=== PATIENT | male | born 1955 | race African-American/Black ===

== ENCOUNTER 2016-07-19 19:54 | Emergency (ER) | payer MEDICAID ==
[~2016-07-19] VITALS: Ht 172.7 cm; Wt 88.5 kg
--- NOTE | 2016-07-19 20:01 | NUR ---
PT WALKED INTO ER C/O GROIN PAIN, STATES HE WAS BOWLING AND HURT HIS RIGHT GROIN AREA, PT IS ALERT, ORIENTED X 4, NO RESP DISTRESS NOTED OR REPORTED UPON ASSESSMENT. MD AT BEDSIDE...
[2016-07-19] MEDS ORDERED: IBUPROFEN 800 MG TABLET PO ONE (20:30)
[2016-07-19] MEDS ORDERED: IBUPROFEN 800 MG TABLET ONE (20:32)
--- NOTE | 2016-07-19 20:43 | NUR ---
Patient discharged to home in stable conditon. Written and verbal after care instructions given. Patient verbalizes understanding of instructions. Pt walked out of ER unassisted with belongings at side... Addendum: 07/19/16 at 2126 by SHORTY pt states his friend will be driving him home, as there was a concern pt wanted to drive home after taking pain meds...
[2016-07-19 20:45] VITALS: BP 136/97
[2016-07-19] MEDS ORDERED: OXYCODONE/APAP 5-325 MG TABLET PO ONE (21:15)
[2016-07-19] MEDS ORDERED: OXYCODONE/APAP 5-325 MG TABLET ONE ×2 (21:17→21:23)
== END 2016-07-19 20:48 | disposition home or self-care (01) ==
LOC: ER 20:20
DX: S39.011A Strain of muscle, fascia and tendon of abdomen, initial encounter (principal); X58.XXXA Exposure to other specified factors, initial encounter; Y93.54 Activity, bowling; Y99.8 Other external cause status; Y92.89 Other specified places as the place of occurrence of the external cause
CPT/HCPCS: A4663

== ENCOUNTER 2022-03-03 07:00 | Inpatient (IN) | payer MEDICAID, OTHER ==
[~2022-03-03] VITALS: Ht 177.8 cm; Wt 92.1 kg
--- NOTE | 2022-03-03 07:20 | NUR ---
Pt arrived with c/o headache, n/v, chills x 2 days, LLQ - abd pain - rated 7/10, characterized as aching, facial grimacing and guarding present. Bowel sounds present on all quadrants, hyperactive. Abd is firm, round and tender. Las BM and food intake was last night-per pt. No acute distress noted. Seen by MANNY for MSE.
--- NOTE | 2022-03-03 07:22 | NUR ---
Dr. Rasheed at bedside for MSE.
[2022-03-03] MEDS ORDERED: ONDANSETRON 4 MG/2 ML VIAL IV ONE (07:30)
[2022-03-03] MEDS ORDERED: IV NORMAL SALINE 1000 ML BAG IV ONE (07:30)
[2022-03-03] MEDS ORDERED: MORPHINE SULFATE 4 MG/1 ML DISP.SYRIN IV ONE (07:45)
[2022-03-03] MEDS ORDERED: ACETAMINOPHEN 325 MG TABLET PO ONE (07:45)
[2022-03-03] MEDS ORDERED: ONDANSETRON 4 MG/2 ML VIAL ONE ×2 (07:47→18:19)
[2022-03-03] MEDS ORDERED: MORPHINE SULFATE 4 MG/1 ML DISP.SYRIN ONE (07:48)
[2022-03-03 08:13] LABS: HEMATOCRIT 45.4 % (36.7-47.1); MEAN CORPUSCULAR VOLUME 85.1 fL (73.0-96.2); PLATELET COUNT (AUTO) 154 K/uL (152-348)
[2022-03-03 08:30] LABS: CARBON DIOXIDE 27 mmol/L (21-32); CHLORIDE 102 mmol/L (98-107); CREATININE 1.5 mg/dL (0.6-1.3); GLUCOSE 115 mg/dL (74-106); UREA NITROGEN, BLOOD 17 mg/dL (7-18)
[2022-03-03 08:39] LABS: ALANINE AMINOTRANSFERASE 36 U/L (16-63); ALKALINE PHOSPHATASE 94 U/L (50-136); ASPARTATE AMINOTRANSFERASE 23 U/L (15-37); BILIRUBIN,DIRECT 0.4 mg/dL (0.0-0.2); BILIRUBIN,TOTAL 1.7 mg/dL (0.2-1.0); LIPASE 166 U/L (73-393); TOTAL PROTEIN, SERUM 7.2 g/dL (6.4-8.2)
[2022-03-03] MEDS ORDERED: ACETAMINOPHEN 325 MG TABLET ONE (08:48)
[2022-03-03] MEDS ORDERED: IOHEXOL 300MG/ML 100 ML INFUS..BTL ONE (09:09)
[2022-03-03] MEDS ORDERED: IV NORMAL SALINE 250 ML IV ONE (09:10)
[2022-03-03] MEDS ORDERED: KETOROLAC TROMETHAMINE 15 MG INJ IVP ONE ×2 (09:15→11:00)
[2022-03-03 09:19] LABS: *BILIRUBIN,URIN NEGATIVE (NEGATIVE); *BLOOD, URINE NEGATIVE (NEGATIVE); *CLARITY,URINE CLEAR (CLEAR); *COLOR,URINE YELLOW (YELLOW); *KETONES,URINE NEGATIVE (NEGATIVE); *UROBILINOGEN,URINE 0.2 E.U./dl (NORMAL); LEUKOCYTE ESTERASE ,URINE NEGATIVE (NEGATIVE); NITRITE, URINE NEGATIVE (NEGATIVE); UGLUCOSE NEGATIVE (NEGATIVE)
[2022-03-03] MEDS ORDERED: KETOROLAC TROMETHAMINE 15 MG INJ ONE ×2 (09:27→10:51)
[2022-03-03] MEDS ORDERED: METRONIDAZOLE 500 MG/NS 100 ML PIGGYBACK IV ONE (09:30)
[2022-03-03] MEDS ORDERED: CEFTRIAXONE 1 G in IV DEXTROSE 5% 50 ML IV ONE (09:30)
[2022-03-03] MEDS ORDERED: CEFTRIAXONE /D5W 50ML IVPB **ER PYXIS IV ONE (09:34)
[2022-03-03] MEDS ORDERED: METRONIDAZOLE 500 MG/NS 100ML 100 ML IV ONE (09:34)
--- NOTE | 2022-03-03 10:16 | NUR ---
Pt is positive for appencitis. Will have surgery within the day - per ERMD.
[2022-03-03] MEDS ORDERED: IV NS 1000 ML 1,000 ML IV PRN (11:00)
[2022-03-03] MEDS ORDERED: ACETAMINOPHEN 650 MG SUPP.RECT RC PRN (11:30)
[2022-03-03] MEDS ORDERED: IV D5/ 0.9% NACL 1,000 ML IV PRN (11:30)
[2022-03-03] MEDS ORDERED: ONDANSETRON 4 MG/2 ML VIAL IV PRN (11:30)
[2022-03-03] MEDS ORDERED: MORPHINE SULFATE 2 MG/1 ML DISP.SYRIN IV PRN (11:30)
[2022-03-03] MEDS ORDERED: PIPERACILLIN SODIUM/TAZOBACTAM 3.375 G in IV DEXTROSE 5% 50 ML IV SCH ×7 (14:00→22:00)
--- NOTE | 2022-03-03 14:45 | NUR ---
Surgeon called and explained to the pt about the procedure and pt signed the consent.
[2022-03-03] MEDS ORDERED: FENTANYL CITRATE 100 MCG/2 ML AMPUL ONE (15:03)
[2022-03-03] MEDS ORDERED: MIDAZOLAM HCL 2 MG/2 ML VIAL ONE (15:04)
[2022-03-03] MEDS ORDERED: FAMOTIDINE. 20 MG/2 ML VIAL IV ONE (15:04)
[2022-03-03] MEDS ORDERED: ROCURONIUM BROMIDE 50 MG/5 ML VIAL ONE (15:04)
[2022-03-03] MEDS ORDERED: BUPIVACAINE/EPI PF 0.25% 10 ML VIAL IJ ONE (15:11)
[2022-03-03] MEDS ORDERED: LIDOCAINE HCL 1% 20 ML VIAL ONE (15:11)
[2022-03-03] MEDS ORDERED: NEOMY/BACITRAC/POLYMI OINT 28.35 GM TUBE ONE (15:12)
[2022-03-03] MEDS ORDERED: GLYCOPYRROLATE 0.2 MG/ML VIAL ONE ×4 (15:27→18:19)
--- NOTE | 2022-03-03 15:35 | NUR ---
Pt in stable condition and has been transported to the OR, accompanied by 2 OR nurses. Belongings are brought and with the pt.
[2022-03-03] MEDS ORDERED: DEXAMETHASONE SOD PHOSPHATE 4 MG INJ ONE (18:19)
[2022-03-03] MEDS ORDERED: CEFAZOLIN 1 G VIAL ONE ×2 (18:19)
[2022-03-03] MEDS ORDERED: PROPOFOL 200 MG/20 ML BOTTLE ONE (18:19)
[2022-03-03] MEDS ORDERED: NEOSTIGMINE METHYLSULFATE 10 MG/10 ML VIAL ONE (18:19)
[2022-03-03] MEDS ORDERED: LIDOCAINE-MPF 2% 5 ML VIAL ONE (18:19)
[2022-03-03] MEDS ORDERED: METOCLOPRAMIDE HCL 10 MG/2 ML VIAL ONE (18:19)
--- NOTE | 2022-03-03 19:45 | NUR ---
RECEIVED PATIENT VIA BED FROM OR S/P LAP APPY. PATIENT IS A/O X4. NO C/O PAIN AT THIS TIME. SLIGHT DISCOMFORT NOTED WITH MOVEMENT. BP REMAINS ON THE LOWER SIDE 90/53. MD AWARE OF LOW BP, ALL OTHER VS WNL. ON O2 NC SATING WELL. IV NOTED TO RIGHT AC #20 GAUGE. ORIENTED PATIENT TO ROOM AND CALL LIGHT. CALL LIGHT IN REACH. ALL NEEDS ATTENDED. WILL CONTINUE TO MONITOR AND ASSESS.
[2022-03-03] MEDS: CELECOXIB 200 MG CAPSULE PO SCH (20:56)
[2022-03-03] MEDS: PIPERACILLIN SODIUM/TAZOBACTAM 3.375 G in IV DEXTROSE 5% 100 ML IV SCH (21:06)
[2022-03-03] MEDS: ACETAMINOPHEN 325 MG TABLET PO SCH (21:24)
[2022-03-03] MEDS: GABAPENTIN 300 MG CAPSULE PO SCH (21:24)
[2022-03-03 21:35] VITALS: BP 90/53
[2022-03-04] MEDS: IV LACTATED RINGERS SOLUTION 1,000 ML IV PRN ×2 (03:48→08:15)
[2022-03-04 04:00] VITALS: BP 104/57
[2022-03-04] MEDS: PIPERACILLIN SODIUM/TAZOBACTAM 3.375 G in IV DEXTROSE 5% 100 ML IV SCH ×3 (04:39→20:10)
[2022-03-04] MEDS: GABAPENTIN 300 MG CAPSULE PO SCH ×3 (06:38→22:14)
[2022-03-04] MEDS: ACETAMINOPHEN 325 MG TABLET PO SCH (06:38)
[2022-03-04 07:34] LABS: HEMATOCRIT 38.5 % (36.7-47.1); MEAN CORPUSCULAR HEMOGLOBIN 29.2 uug (23.8-33.4); MEAN CORPUSCULAR VOLUME 85.8 fL (73.0-96.2); PLATELET COUNT (AUTO) 99 K/uL (152-348)
[2022-03-04 07:57] LABS: BILIRUBIN,TOTAL 0.8 mg/dL (0.2-1.0); CREATININE 1.4 mg/dL (0.6-1.3); MAGNESIUM 1.7 mg/dL (1.8-2.4); POTASSIUM 4.5 mmol/L (3.5-5.1); TOTAL PROTEIN, SERUM 5.8 g/dL (6.4-8.2)
[2022-03-04] MEDS: CELECOXIB 200 MG CAPSULE PO SCH ×2 (08:15→21:52)
--- NOTE | 2022-03-04 08:24 | NUR ---
RECEIVED PATIENT IN BED AWAKE ALERT AND ORIENTED REMAIN ON O2 AT 2L/M BY NASAL CANULA WITH NO SOB AT THIS TIME STATED HAVING INCISIONAL PAIN MEDICATED WITH MORPHINE ORDERED ABDOMEN WITH SCOPE SITES INTACT WITH NO DRAINAGE IVF ORDERED WITH NO S/S OF INFILTERATION ON SITE IV ATB IN PROGRESS WITH NO ADVERSE OR ALLERGIC REACTIONS AT THIS TIME INCENTIVE SPIROMETER ENCOURAGED POST OP TEACHING IN PROGRESS CALL LIGHTS AND PERSONAL BELONGINGS ARE WITHIN EASY REACH MADE COMFORTABLE DYLON FULL LIQUIDS DIETS ORDERED WILL CONTINUE TO OBSERVE.
[2022-03-04] MEDS ORDERED: PANTOPRAZOLE SODIUM 40 MG VIAL IV SCH (09:00)
[2022-03-04] MEDS ORDERED: ACETAMINOPHEN 325 MG TABLET PO PRN (10:00)
[2022-03-04 11:20] VITALS: BP 100/59
--- NOTE | 2022-03-04 11:49 | NUR ---
PATIENT SEEN AND EXAMINED BY DR AVELAR WITH NEW ORDERS AND NOTED.
[2022-03-04] MEDS ORDERED: MAGNESIUM OXIDE 400 MG TABLET PO ONE (12:00)
--- NOTE | 2022-03-04 12:30 | NUR ---
PATIENT TAKEN BY BED TO THE RADIOLOGY DEPT FOR CT CHEST ORDERED.
[2022-03-04] MEDS: MAGNESIUM SULFATE/D5W 100 ML IV SCH ×3 (15:28→18:07)
--- NOTE | 2022-03-04 15:36 | NUR ---
DR OSCAR HERE SEEN PATIENT WITH NEW ORDERS AND NOTED.
[2022-03-04 16:54] VITALS: BP 93/55
--- NOTE | 2022-03-04 17:39 | NUR ---
REGULAR DIET ORDERED AND SERVED TO THE PATIENT ORDERED.
[2022-03-04 20:00] VITALS: BP 117/53
[2022-03-05] MEDS: PIPERACILLIN SODIUM/TAZOBACTAM 3.375 G in IV DEXTROSE 5% 100 ML IV SCH ×2 (03:02→11:32)
[2022-03-05 04:00] VITALS: BP 118/55
[2022-03-05] MEDS: GABAPENTIN 300 MG CAPSULE PO SCH ×2 (06:03→14:00)
[2022-03-05] MEDS ORDERED: PANTOPRAZOLE SODIUM 40 MG TABLET.DR PO SCH (07:00)
[2022-03-05 07:39] LABS: HEMATOCRIT 42.8 % (36.7-47.1); MEAN CORPUSCULAR HEMOGLOBIN 28.4 uug (23.8-33.4); MEAN CORPUSCULAR VOLUME 86.4 fL (73.0-96.2); PLATELET COUNT (AUTO) 103 K/uL (152-348)
--- NOTE | 2022-03-05 08:00 | NUR ---
AWAKE ALERT AND ORIENTED X3, NOTED NO SS OF PAIN OR DISTRESS. INCREASE AMBULATION ADVISE
[2022-03-05 08:11] LABS: CREATININE 1.3 mg/dL (0.6-1.3); MAGNESIUM 2.5 mg/dL (1.8-2.4); PHOSPHOROUS 2.5 mg/dL (2.5-4.9); POTASSIUM 4.6 mmol/L (3.5-5.1)
[2022-03-05] MEDS: CELECOXIB 200 MG CAPSULE PO SCH (09:23)
--- NOTE | 2022-03-05 11:22 | NUR ---
SEEN BY PHYSICAL THERAPIST FOR THEREX, SEE NOTES
[2022-03-05 11:34] VITALS: BP 123/97
--- NOTE | 2022-03-05 13:00 | NUR ---
SEEN BY DR WAITE PLAN DISCHARGE TODAY
[2022-03-05] MEDS ORDERED: LEVO500T90 PO (14:28)
[2022-03-05] MEDS ORDERED: ACET325T53 PO (14:28)
[2022-03-05] MEDS ORDERED: METR500T PO (14:28)
[2022-03-05 15:50] VITALS: BP 104/62
--- NOTE | 2022-03-05 18:30 | NUR ---
PATIENT DISCHARGED WITH RX AND FOLLOW-UP INSTRUCTION WITH DR OSCAR AND PCP.
== END 2022-03-05 18:30 | disposition home or self-care (01) | DRG 710 ==
LOC: ER 07:00 → MEDSURG3 18:53
PROVIDERS: ADMIT Internal Medicine; ATTEND Internal Medicine
PROC: 0DTJ4ZZ Resection of Appendix, Percutaneous Endoscopic Approach (ICD-10-PCS; principal; 2022-03-03)
DX: A41.51 Sepsis due to Escherichia coli [E. coli] (principal); N17.0 Acute kidney failure with tubular necrosis; E44.0 Moderate protein-calorie malnutrition; K35.80 Unspecified acute appendicitis; E66.9 Obesity, unspecified; E86.0 Dehydration; E88.09 Other disorders of plasma-protein metabolism, not elsewhere classified; Z20.822 Contact with and (suspected) exposure to COVID-19; E80.6 Other disorders of bilirubin metabolism; Z68.29 Body mass index [BMI] 29.0-29.9, adult; E83.42 Hypomagnesemia; K76.0 Fatty (change of) liver, not elsewhere classified
CPT/HCPCS: 36415; 71045; 71250; 82378; 83550; 83605; 83690; 83735; 84100; 84484; 85025; 85610; 85730; 86850; 86900; 86901; 87040; 87077; 87400; 93005; A4663; C9113; G0378; J0690; J0696; J1100; J1885; J2250; J2270; J2405; J2543; J2765; J3010; J3475; J3490; J7040; J7120; L8699; Q9967